=== PATIENT | female | born 1965 | race Caucasian/White ===

== ENCOUNTER → 2020-06-30 14:39 | Outpatient (CLI) | payer OTHER, SELFPAY ==
--- NOTE | 2020-06-30 14:59 | DI.MG.S_ITS ---
Patient Name: INO MCKENZIE date: 1965 Sex: F Attending Physician: Renate Indications: Date: 06/30/2020 14:45 At the request of: CHRISTOS THURSTON Procedure: MM diagnostic mammo BI BILATERAL DIGITAL DIAGNOSTIC MAMMOGRAM 3D/2D: 06/30/2020 CLINICAL: Right breast thickening. Comparison is made to exams dated: 02/26/2019 mammogram and 11/01/2017 mammogram - Medical Imaging @ [facility]. The tissue of both breasts is heterogeneously dense. This may lower the sensitivity of mammography. There is a new 0.8 cm irregular equal density asymmetry in the right breast posterior depth central to the nipple seen on the mediolateral oblique view only. No other significant masses, calcifications, or other findings are seen in either breast. IMPRESSION: INCOMPLETE: NEEDS ADDITIONAL IMAGING EVALUATION The new 0.8 cm irregular equal density asymmetry in the right breast is indeterminate. Further evaluation by sonogram is recommended which is scheduled to immediately follow this examination. There is no abnormality seen in the right breast to correspond with the area of clinical concern and palpable abnormality indicated by triangular marker in the posterior depth in the lower inner quadrant, however, ultrasound is recommended which is scheduled to immediately follow this examination. This exam was interpreted at Station ID: [id number]. NOTE: For mammograms, a report in lay terms will be sent to the patient. Approximately 15% of breast malignancies will not be visualized mammographically. In the management of a palpable breast mass, a negative mammogram must not discourage biopsy of a clinically suspicious lesion. Electronically Signed By: Ivan Carranza M.D. Continued Report - Page 2 of 2 Patient Name: INO MCKENZIE date: 1965 Sex: F Attending Physician: Renate Indications: Date: 06/30/2020 14:45 At the request of: CHRISTOS THURSTON Procedure: MM diagnostic mammo BI aty/:06/30/2020 17:13:59 ACR BI-RADS Category 0: Incomplete 3340F
--- NOTE | 2020-07-31 15:53 | DI.US.S_ITS ---
Patient Name: INO MCKENZIE date: 1965 Sex: F Attending Physician: Renate Indications: Date: 06/30/2020 16:04 At the request of: CHRISTOS THURSTON Procedure: US breast RT limited LIMITED ULTRASOUND OF RIGHT BREAST AND AXILLA: 06/30/2020 CLINICAL: Palpable right breast lump. Comparison is made to exams dated: 06/30/2020 mammogram - [facility], 02/26/2019 mammogram, and 11/01/2017 mammogram - Medical Imaging @ [facility]. Color flow and real-time ultrasound of the right breast 4 o'clock, 6 o'clock, retroareolar, and axilla regions were performed. Rivera scale images of the real-time examination were reviewed. There is a 1.1 cm x 0.9 cm x 0.9 cm irregular mass with an indistinct margin in the right breast at 6 o'clock posterior depth. This irregular mass is hypoechoic with mild posterior acoustic shadowing. This possibly correlates with mammography finding of the mediolateral oblique view asymmetry noted in the posterior right breast along the retroareolar plane. Color flow imaging demonstrates that there is no vascularity present. No sonographic abnormalities were visualized at the patient directed area of palpable concern localizing to the 4 o'clock axis. No significant abnormalities were seen sonographically in the right axilla. IMPRESSION: SUSPICIOUS OF MALIGNANCY The 1.1 cm x 0.9 cm x 0.9 cm irregular mass in the right breast is suspicious of malignancy. An ultrasound guided biopsy is recommended. There is no sonographic abnormality seen in the right breast to correspond with the area of clinical concern and palpable abnormality indicated by triangular marker in the posterior depth in the lower inner quadrant, however, recommend continued clinical follow up for persistent or worsening symptoms or development of any clinically suspicious findings. Findings and biopsy recommendations were discussed in person with the patient by Dr. Limon during today's evaluation. Continued Report - Page 2 of 2 Patient Name: INO MCKENZIE date: 1965 Sex: F Attending Physician: Renate Indications: Date: 06/30/2020 16:04 At the request of: CHRISTOS THURSTON Procedure: US breast RT limited This exam was interpreted at Station ID: [id number]. Electronically Signed By: Ivan Carranza M.D. aty/:06/30/2020 17:19:38 letter sent: Biopsy Required Ultrasound BI-RADS: 4 Suspicious for malignancy
== END ==
PROVIDERS: PCP Physician Assistant; Referring Provider Physician Assistant; Visit Provider Physician Assistant
DX: R92.8 Other abnormal and inconclusive findings on diagnostic imaging of breast (principal); N63.15 Unspecified lump in the right breast, overlapping quadrants
CPT/HCPCS: 76642; 77066; G0279

== ENCOUNTER → 2020-07-09 09:01 | Outpatient (CLI) | payer OTHER, SELFPAY ==
--- NOTE | 2020-07-09 09:02 | DI.RAD.S_ITS ---
PROCEDURE: XR ANKLE LT MIN 3V INDICATIONS: l ankle pain TECHNIQUE: 3 views of the ankle were acquired. COMPARISON: None. FINDINGS: Bones: No fractures or dislocations. Ankle mortise is normally aligned. No suspicious bony lesions. The talar dome demonstrates no henna abnormality. Incidental note is made of an accessory ossicle, an os peroneum. Soft tissues: No tibiotalar joint effusion. Achilles tendon appears normal. IMPRESSION: No acute plain film abnormality is seen. If it would be helpful for clinical management decision making, please consider a dedicated, scheduled ankle MRI for further evaluation (assuming that there is no contraindication). Dictated by: Eron Rowell M.D. on 07/09/2020 at 8:15 Approved by: Eron Rowell M.D. on 07/09/2020 at 8:16
== END ==
PROVIDERS: PCP Physician Assistant; Referring Provider Physician Assistant; Visit Provider Physician Assistant
DX: M25.572 Pain in left ankle and joints of left foot (principal)
CPT/HCPCS: 73610

== ENCOUNTER → 2020-07-14 12:37 | Outpatient (CLI) | payer OTHER, SELFPAY ==
--- NOTE | 2020-07-14 | PATH_ITS ---
[facility] Accession Number: [id number] . 01 Material submitted: . breast - RIGHT BREAST MASS 6:00 RETRO . 01 Diagnosis: A. Right Breast Mass, 6 o'clock, Retroareolar, Biopsy: Fibroadenoma. Background breast parenchyma with focal apocrine metaplasia and focal usual ductal hyperplasia. Calcifications are not identified. Negative for atypia, carcinoma in situ, and malignancy. V 07/17/2020 1732 Local . 01 Electronically signed: . Eleni Oliver MD, Pathologist NPI- [id number] . 01 Gross description: . Received in formalin, labeled RT breast, are six pieces of jackson, fibrous tissue measuring 1.0 x 0.4 x 0.3 cm to 0.5 x 0.5 x 0.4 cm. All six pieces are entirely submitted in cassettes A1 and A2, with three pieces per cassette. The collection date and time are listed as 07/14/20 at 14:05 for a total of approximately 18 hours of fixation after processing. ([id number]) /FRR 07/15/2020 0851 Local . 01 Microscopic: . No polarizable material is identified under polarizable light microscopy. . 01 Pathologist provided ICD-10: D24.9 . 01 CPT . 525645 Performed at: 01 [facility] [address] [place] [address] [address], [place], [place] [id number] MD Fercho Perrin MD Phone: [phone]
--- NOTE | 2020-07-14 13:27 | DI.US.S_ITS ---
Patient Name: INO MCKENZIE date: 1965 Sex: F Attending Physician: Renate Indications: Date: 07/14/2020 13:21 At the request of: CHRISTOS THURSTON Procedure: US bx breast perc w vac device ULTRASOUND GUIDED BIOPSY RIGHT BREAST USING VACUUM DEVICE WITH MARKING DEVICE INSERTED: 07/14/2020 CLINICAL: Right breast mass. PATIENT CONSENT: Risks (minor bleeding, infection, vasovagal reaction and repeat procedure), benefits and alternatives were explained to the patient and written informed consent was obtained. Correlation is made to exams dated: 07/14/2020 mammogram, 06/30/2020 ultrasound, 06/30/2020 mammogram - [facility], 02/26/2019 mammogram, and 11/01/2017 mammogram - Medical Imaging @ [facility]. An ultrasound guided biopsy using real-time ultrasound was performed for the irregular shaped mass located in the right breast at 6 o'clock middle depth. The skin was prepped in the usual manner. Local anesthetic was administered to the access site. A small incision was made in the breast. The abnormality was approached from the lateral aspect. A biopsy needle was placed adjacent to the abnormality under ultrasound guidance. Once the needle was documented to be in the correct location, four specimens were obtained using the Mammotome biopsy system. A clip was inserted into the biopsy cavity. The specimens were sent to the laboratory for pathological analysis. IMPRESSION: ULTRASOUND GUIDED BIOPSY BENIGN Ultrasound guided biopsy of the mass in the right breast at 6 o'clock middle depth was successful. Pathology indicates benign apocrine metaplasia, usual ductal hyperplasia, and fibroadenoma. Pathology results are concordant with imaging findings. Return to annual mammogram screening schedule is recommended. This exam was interpreted at Station ID: [id number]. Juan linares,aty/:07/18/2020 19:28:33 Continued Report - Page 2 of 2 Patient Name: INO MCKENZIE date: 1965 Sex: F Attending Physician: Renate Indications: Date: 07/14/2020 13:21 At the request of: CHRISTOS THURSTON Procedure: US bx breast perc w vac device
--- NOTE | 2020-07-14 16:31 | DI.MG.S_ITS ---
Patient Name: INO MCKENZIE date: 1965 Sex: F Attending Physician: Renate Indications: Date: 07/14/2020 13:00 At the request of: CHRISTOS THURSTON Procedure: MM diagnostic mammo [id number] UNILATERAL RIGHT DIGITAL DIAGNOSTIC MAMMOGRAM POST-NEEDLE BIOPSY: 07/14/2020 CLINICAL: Right breast mass. Comparison is made to exams dated: 06/30/2020 mammogram - [facility], 02/26/2019 mammogram, and 11/01/2017 mammogram - Medical Imaging @ [facility]. The tissue of right breast is heterogeneously dense. This may lower the sensitivity of mammography. There is a marker clip in the appropriate position in the right breast at 6 o'clock middle depth. This marker clip placement is at the biopsy site. IMPRESSION: POST PROCEDURE MAMMOGRAM FOR MARKER PLACEMENT There was a successful marker clip placement in the right breast . This exam was interpreted at Station ID: [id number]. NOTE: For mammograms, a report in lay terms will be sent to the patient. Approximately 15% of breast malignancies will not be visualized mammographically. In the management of a palpable breast mass, a negative mammogram must not discourage biopsy of a clinically suspicious lesion. Electronically Signed By: Juan linares/:07/14/2020 16:31:23 ACR BI-RADS Category Post-procedure mammogram for marker placement
== END ==
PROVIDERS: PCP Physician Assistant; Referring Provider Physician Assistant; Visit Provider Physician Assistant
DX: D24.1 Benign neoplasm of right breast (principal); N60.81 Other benign mammary dysplasias of right breast
CPT/HCPCS: 19083; 77065

== ENCOUNTER → 2021-07-05 07:58 | Outpatient (CLI) | payer OTHER, SELFPAY ==
[2021-07-05 08:37] LABS: COVID19 -Nasal RAPID Negative (Negative)
== END ==
PROVIDERS: PCP Physician Assistant; Referring Provider Nurse Practitioner; Visit Provider Nurse Practitioner
DX: R19.7 Diarrhea, unspecified (principal); Z20.822 Contact with and (suspected) exposure to COVID-19
CPT/HCPCS: 87635

== ENCOUNTER → 2021-08-27 16:35 | Outpatient (CLI) | payer OTHER, SELFPAY ==
--- NOTE | 2021-08-27 | DI.MG.S_ITS ---
BILATERAL DIGITAL SCREENING MAMMOGRAM 3D/2D WITH CAD: 08/27/2021 CLINICAL: Routine screening. Comparison is made to exams dated: 07/14/2020 mammogram, 06/30/2020 mammogram - [facility], and 02/26/2019 mammogram - Medical Imaging @ [facility]. The tissue of both breasts is heterogeneously dense. This may lower the sensitivity of mammography. Current study was also evaluated with a Computer Aided Detection (CAD) system. There is a biopsy clip in the right breast. No significant masses, calcifications, or other findings are seen in either breast. There has been no significant interval change. IMPRESSION: NEGATIVE There is no mammographic evidence of malignancy. A 1 year screening mammogram is recommended. This exam was interpreted at Station ID: [id number]. NOTE: For mammograms, a report in lay terms will be sent to the patient. Approximately 15% of breast malignancies will not be visualized mammographically. In the management of a palpable breast mass, a negative mammogram must not discourage biopsy of a clinically suspicious lesion. Electronically Signed By: Tg miller/jessica:08/27/2021 17:27:57 letter sent: Normal Exam ACR BI-RADS Category 1: Negative 3341F
== END ==
PROVIDERS: PCP Physician Assistant; Referring Provider Physician Assistant; Visit Provider Physician Assistant
DX: Z12.31 Encounter for screening mammogram for malignant neoplasm of breast (principal)
CPT/HCPCS: 77063; 77067

== ENCOUNTER → 2021-10-24 09:12 | Outpatient (CLI) | payer OTHER, SELFPAY ==
[2021-10-24 11:37] LABS: COVID19 -Nasal RAPID Negative (Negative)
== END ==
PROVIDERS: PCP Physician Assistant; Visit Provider Surgery
DX: Z01.812 Encounter for preprocedural laboratory examination (principal); Z20.822 Contact with and (suspected) exposure to COVID-19
CPT/HCPCS: 87635; C9803

== ENCOUNTER 2021-10-25 07:38 | Day surgery (SDC) | payer OTHER, SELFPAY ==
--- NOTE | 2021-10-25 | PATH_ITS ---
[facility] Accession Number: [id number] . 01 Material submitted: . stomach - ANTRUM . 02 Diagnosis: Antrum, Biopsies: Gastric antral mucosa with minimal chronic inflammation. Negative for Helicobacter organisms by immunohistochemistry. Negative for intestinal metaplasia. Negative for dysplasia or malignancy. [facility] 10/31/2021 1530 Local . 02 Electronically signed: . Lonny Arteaga MD, PhD, Pathologist NPI- [id number] . 01 Gross description: . The specimen is received in formalin, labeled antrum and consists of two jackson fragments of soft tissue measuring 0.4 x 0.3 x 0.2 cm in aggregate. The specimen is entirely submitted in cassette A1. (EA:[id number]) /MRV 10/26/2021 1232 Local . 02 Microscopic: . An immunohistochemical stain was performed to evaluate for Helicobacter organisms and is negative. The control stain showed appropriate reactivity. . * This test was developed and its performance characteristics determined by [facility]. It has not been cleared or approved by the U.S. Food and Drug Administration. The FDA has determined that such clearance or approval is not necessary. This test is used for clinical purposes. It should not be regarded as investigational or for research. . 02 Pathologist provided ICD-10: K29.70 . 02 CPT . 213691, G03212 Performed at: 01 [facility] [address] [place] [address], [place], [place] [id number] MD Fercho Perrin MD Phone: [phone] Performed at: 02 [facility] [id number] [place], [place] [id number] MD Jacquelyn Avelar MD Phone: [phone]
[2021-10-25 07:52] VITALS: BP 115/73; PULSE 71; RESP 16; TEMP 37.1; O2SAT 96; BMI 25.8
[2021-10-25] MEDS: LACTATED RINGERS 1,000 ML 42 ML IV (08:03)
--- NOTE | 2021-10-25 09:14 | PM.HP.1 ---
History of Present Illness History of Present Illness Date Patient Seen: 10/25/21 Time Patient Seen: 09:14 Chief complaint: SDC Narrative: 56-year-old woman with GERD type symptoms including eructation and regurgitation Patient History Medical History (Updated 10/25/21 @ 09:16 by Dilip Girard MD) Chronic urticaria GERD (gastroesophageal reflux disease) Surgical History H/O parathyroidectomy H/O: hysterectomy Family & Social History Family History Mother Hypertension Myeloma Sister Hypertension Father Bladder cancer Grandmother Cancer Colon cancer Social History: household members spouse lives independently Yes Tobacco & Substance use: Smoking Status Never smoker alcohol intake current alcohol intake frequency a few times a month Substance Use Type does not use Meds Home Medications and Allergies Home Medications Medication Instructions Recorded Confirmed Type conjugated estrogens 0.3 mg tablet 0.3 mg PO DAILY 07/09/20 10/25/21 History (Premarin) sertraline 50 mg tablet 75 mg PO DAILY tab 07/09/20 10/25/21 History Saccharomyces boulardii [Daily 1 tab PO DAILY 09/11/21 10/25/21 History Probiotic (S. boulardii)] cholecalciferol (vitamin D3) 125 125 mcg PO DAILY 09/11/21 10/25/21 History mcg (5,000 unit) capsule (Dialyvite Vitamin D) mecobalamin (vitamin B12) [B12 1 tab PO DAILY 09/11/21 10/25/21 History Active] Allergies Allergy/AdvReac Type Severity Reaction Status Date / Time Sulfa (Sulfonamide Allergy Verified 09/11/21 13:59 Antibiotics) Exam Vital Signs (past 8 hours): - 10/25/21 07:52 Temperature 98.7 F Pulse Rate 71 Respiratory Rate 16 Blood Pressure 115/73 Pulse Oximetry 96 Oxygen Delivery Method Room Air Const General: healthy appearing Eyes General: appearance normal, both eyes and all related structures Resp Effort & Inspection: normal respiratory effort Assessment & Plan Assessment and plan (1) GERD (gastroesophageal reflux disease): Status: Acute Plan EGD today COVID-19 COVID-19 status: Negative Result date/Date tested (Pos, Neg/Pending): 10/24/21 Time Spent With Patient Critical Care time: I spent a total of [] minutes of critical care time on this patient's care today; this time is exclusive of procedural time.
[2021-10-25] MEDS: LIDOCAINE 4% SOLN 50 ML 20 ML TOP (09:23)
[2021-10-25] MEDS: MIDAZOLAM 5 MG/5 ML VIAL IV (09:26)
[2021-10-25] MEDS: fentaNYL 250 MCG/5 ML INJ IV (09:27)
--- NOTE | 2021-10-25 09:33 | PM.OP.EGD ---
Operative Date/Time/Diagnoses Date of procedure: 10/25/21 Time of procedure: 09:33 Pre-op diagnosis: GERD Post-op diagnosis: same Procedure & Clinicians Study performed: Esophagogastroduodenoscopy Same procedure as scheduled: Yes Indications: GERD Surgeon: Dilip Girard Procedure Notes SCOAP/Timeout: Yes Procedure in detail: A timeout was performed. A bite blocked was placed. The patient was positioned in the left lateral decubitus position. The endoscope was inserted through the bite block and passed through the esophagus and stomach and into the duodenum. The duodenal mucosa appeared normal. The scope was withdrawn into the duodenal bulb and no abnormalities were noted. The scope was withdrawn into the stomach. No ulcerations or erythema were noted. Random biopsies were taken from the antrum to rule out H pylori. The rest of the stomach was normal. The scope was retroflexed and no abnormality was noted. The scope was withdrawn into the esophagus and the Z-line was inspected. No abnormality was noted. The remainder of the esophagus was normal. The scope was withdrawn. The patient was awakened and brought to recovery. Sedation minutes: 7 Post-procedure Recommendations: Will call with biopsy results
[2021-10-25 09:35] VITALS: BP 106/67; PULSE 66; RESP 10; TEMP 36.8; O2SAT 94
[2021-10-25 09:40] VITALS: BP 107/65; PULSE 67; RESP 22; O2SAT 94
[2021-10-25 09:45] VITALS: BP 105/54; PULSE 64; RESP 9; O2SAT 95
[2021-10-25 09:50] VITALS: BP 101/65; PULSE 64; RESP 10; TEMP 36.2; O2SAT 96
[2021-10-25 10:00] VITALS: BP 102/70; PULSE 67; RESP 12; TEMP 36.5; O2SAT 95
== END 2021-10-25 10:05 | disposition home or self-care (01) ==
PROVIDERS: PCP Physician Assistant; Referring Provider Surgery; Visit Provider Surgery
PROC: 0DJ08ZZ Inspection of Upper Intestinal Tract, Via Natural or Artificial Opening Endoscopic (ICD-10-PCS; CPT 43235; principal; 2021-10-25 08:45)
DX: K21.9 Gastro-esophageal reflux disease without esophagitis (principal); K29.50 Unspecified chronic gastritis without bleeding
CPT/HCPCS: 43239; 99152; J2250; J3010

== ENCOUNTER → 2022-09-13 14:51 | Outpatient (CLI) | payer OTHER, SELFPAY ==
--- NOTE | 2022-09-13 | DI.MG.S_ITS ---
BILATERAL DIGITAL SCREENING MAMMOGRAM 3D/2D WITH CAD: 09/13/2022 CLINICAL: Routine screening. Comparison is made to exams dated: 08/27/2021 mammogram, 07/14/2020 mammogram, 06/30/2020 mammogram - [facility], and 02/26/2019 mammogram - Medical Imaging @ [facility]. Both breasts are heterogeneously dense, which may obscure small masses (category c / 51-75% glandular tissue). Current study was also evaluated with a Computer Aided Detection (CAD) system. There is a biopsy clip in the right breast. No significant masses, calcifications, or other findings are seen in either breast. There has been no significant interval change. IMPRESSION: NEGATIVE There is no mammographic evidence of malignancy. A 1 year screening mammogram is recommended. Based on the Tyrer Cuzick model (a risk assessment model) the patient's lifetime risk is 12.3% and her 10 year risk is 4.6%. According to the ACR, ACS, and NCCN guidelines, an annual breast MRI exam along with mammogram is recommended if the patient's lifetime risk is 20% or greater. This exam was interpreted at Station ID: [id number]. NOTE: For mammograms, a report in lay terms will be sent to the patient. Approximately 15% of breast malignancies will not be visualized mammographically. In the management of a palpable breast mass, a negative mammogram must not discourage biopsy of a clinically suspicious lesion. Electronically Signed By: Viral quesada/jessica:09/13/2022 17:43:06 letter sent: Normal Exam ACR BI-RADS Category 1: Negative 3341F
== END ==
PROVIDERS: PCP Family Medicine; Referring Provider Family Medicine; Visit Provider Family Medicine
DX: Z12.31 Encounter for screening mammogram for malignant neoplasm of breast (principal)
CPT/HCPCS: 77063; 77067

== ENCOUNTER → 2022-11-18 07:05 | Outpatient (CLI) | payer OTHER, SELFPAY ==
--- NOTE | 2022-11-18 | DI.RAD.S_ITS ---
PROCEDURE: XR DEXA AXIAL SKELETON INDICATIONS: OSTEOPOROSIS SCREENING COMPARISON: None. FINDINGS: This blank DEXA report has been sent in error by the PACS system. The correct and complete report will be forthcoming in 1-2 days. Thank you for your patience and understanding. Dictated by: Harjeet Limon M.D. on 11/18/2022 at 14:09 Approved by: Harjeet Limon M.D. on 11/18/2022 at 14:09
[2022-11-18 07:54] LABS: Add Manual Diff / Slide Review NO; Basophils Absolute Auto 100 /uL (0-100); Basophils Percent Auto 1.4 % (0-2); Eosinophils Absolute Auto 300 /uL (0-450); Eosinophils Percent Auto 6.5 % (2-4); Hematocrit 39.7 % (36-46); Hemoglobin 12.6 g/dL (12.0-16.0); Lymphocytes Absolute Auto 1200 /uL (1100-4500); Mean Corpuscular HGB Conc 31.8 % (30-36); Mean Corpuscular Hemoglobin 27.6 PG (26-34); Mean Corpuscular Volume 86.8 fL (80-100); Monocytes Absolute Auto 400 /uL (0-900); Monocytes Percent Auto 8.7 % (3-14); Neutrophils Absolute Auto 2900 /uL (1500-7000); Neutrophils Percent Auto 59.4 % (50-75); Platelet Count 222 X10^3/uL (150-400); Red Blood Cell Count 4.57 X10^6/uL (4.0-5.2); Red Cell Distribution Width 13.7 % (11.6-14.8); White Blood Cell Count 4.8 X10^3/uL (4.5-11.0)
[2022-11-18 08:06] LABS: Alanine Aminotransferase 17 IU/L (<35); Alkaline Phosphatase 67 U/L (38-126); Aspartate Aminotransferase 19 IU/L (14-36); BUN Creatinine Ratio 25.8 (6-22); Bilirubin Total 0.4 mg/dL (0.2-1.3); Blood Urea Nitrogen 17 mg/dL (7-17); Carbon Dioxide 27 mmol/L (22-32); Chloride 104 mmol/L (98-107); Cholesterol 207 mg/dL (140-199); Estimated Glomerular Filt Rate > 60 mL/min (>60); Glucose 88 mg/dL (70-100); HDL Cholesterol 81 mg/dL (40-60); HEMOLYSIS < 15 (0-50); LDL Cholesterol Calculated 108 mg/dL (<100); Magnesium 1.9 mg/dL (1.6-2.3); Potassium 4.1 mmol/L (3.4-5.1); Sodium 139 mmol/L (137-145); Total Protein 6.8 g/dL (6.3-8.2); Triglycerides 92 mg/dL (35-150)
[2022-11-18 08:22] LABS: Vitamin D 25 Hydroxy (D3) 35.3 ng/mL (30.0-100.0)
[2022-11-18 09:09] LABS: Folate 9.3 ng/mL (2.76-20.0); Vitamin B12 579 pg/mL (239-931)
[2022-11-22 15:42] LABS: Albumin 3.8 g/dL (3.5-5.0); Albumin Globulin Ratio 1.3 (1.0-2.8)
== END ==
PROVIDERS: PCP Family Medicine; Referring Provider Family Medicine; Visit Provider Family Medicine
DX: Z13.820 Encounter for screening for osteoporosis (principal); M85.852 Other specified disorders of bone density and structure, left thigh; Z78.0 Asymptomatic menopausal state; Z12.11 Encounter for screening for malignant neoplasm of colon; E78.5 Hyperlipidemia, unspecified; R00.2 Palpitations; E56.9 Vitamin deficiency, unspecified; F32.9 Major depressive disorder, single episode, unspecified; Z92.23 Personal history of estrogen therapy; Z90.710 Acquired absence of both cervix and uterus
CPT/HCPCS: 36415; 77080; 80053; 80061; 82306; 82607; 82746; 83735; 84443; 85025

== ENCOUNTER 2023-04-24 08:55 | Day surgery (SDC) | payer OTHER, SELFPAY ==
[2023-04-24 09:20] VITALS: BMI 27.3
[2023-04-24 09:27] VITALS: BP 114/80; PULSE 76; RESP 16; TEMP 36.7; O2SAT 98
[2023-04-24] MEDS: LACTATED RINGERS 1,000 ML 42 ML IV (09:30)
--- NOTE | 2023-04-24 10:25 | PM.HP.1 ---
History of Present Illness History of Present Illness Date Patient Seen: 04/24/23 Time Patient Seen: 10:25 Chief complaint: Colonoscopy Narrative: Nahomy is 57-year-old woman who has had polyps removed on prior colonoscopies. Her last colonoscopy was in 2017 and was normal. The recommendation given was for 5 years. [facility] Medical History Chronic urticaria GERD (gastroesophageal reflux disease) Surgical History H/O parathyroidectomy H/O: hysterectomy Family History Mother Hypertension Myeloma Sister Hypertension Father Bladder cancer Grandmother Cancer Colon cancer Social History marital status: household members: spouse lives independently: Yes occupational status: employed Smoking Status: Never smoker alcohol intake: current Meds Home Medications and Allergies Home Medications Medication Instructions Recorded Confirmed Type sertraline 50 mg tablet 75 mg PO DAILY 07/09/20 04/24/23 History Multi For Her 04/24/23 History famotidine 20 mg tablet (Pepcid) 20 mg PO PRN PRN Heartburn 04/24/23 04/24/23 History Allergies Allergy/AdvReac Type Severity Reaction Status Date / Time Sulfa (Sulfonamide Allergy Verified 04/24/23 09:14 Antibiotics) codeine AdvReac Nausea Verified 04/24/23 09:14 Exam Vital Signs (past 8 hours): - 04/24/23 09:27 Temperature 98.0 F Pulse Rate 76 Respiratory Rate 16 Blood Pressure 114/80 Pulse Oximetry 98 Oxygen Delivery Method Room Air Oxygen Delivery Method Room Air Const General: healthy appearing Assessment & Plan Assessment and plan (1) History of colon polyps: Status: Acute Plan We reviewed the risks and benefits of colonoscopy for colon cancer screening and history of polyps and she would like to proceed.
--- NOTE | 2023-04-24 11:28 | PM.OP.COLON ---
Operative Date/Time/Diagnoses Date of procedure: 04/24/23 Time of procedure: 11:28 Pre-op diagnosis: Colon cancer screening Post-op diagnosis: same Procedure & Clinicians Study performed: Colonoscopy Same procedure as scheduled: Yes Surgeon: Dilip Girard Procedure Notes Procedure in detail: Surgeon: Dilip Girard MD Anesthesia: Jemal Ocampo CRNA Procedure: The patient was brought to the endoscopy suite, placed in left lateral decubitus position. The patient was connected to monitoring devices. A time-out was performed. Sedation was administered. Once the patient was adequately sedated, a digital rectal exam was performed and was normal. The scope was then inserted and advanced to the cecum where the appendiceal orifice was identified and photographed. The scope was then slowly withdrawn over greater than 6 minutes. The mucosa was thoroughly inspected. No polyps were seen. The scope was retroflexed in the rectum. No abnormalities were seen. The scope was straightened and removed. The patient was awakened and brought to recovery. Scope withdrawal time: 8 minutes Sedation time: 16 minutes EBL: 0 Findings: Normal colon Post-procedure Recommendations: Colonoscopy in 10 years Disposition: PACU
[2023-04-24 11:30] VITALS: BP 101/81; PULSE 72; RESP 16; TEMP 36.1; O2SAT 91
[2023-04-24 11:35] VITALS: BP 89/55; PULSE 75; RESP 12; O2SAT 98
[2023-04-24 11:40] VITALS: BP 97/61; PULSE 70; RESP 18; TEMP 36.2; O2SAT 98
[2023-04-24 11:46] VITALS: BP 100/64; PULSE 69; RESP 12; O2SAT 98
== END 2023-04-24 11:59 | disposition home or self-care (01) ==
PROVIDERS: PCP Nurse Practitioner Family; Referring Provider Surgery; Visit Provider Surgery
PROC: 0DJD8ZZ Inspection of Lower Intestinal Tract, Via Natural or Artificial Opening Endoscopic (ICD-10-PCS; CPT 45378; principal; 2023-04-24 10:00)
DX: Z12.11 Encounter for screening for malignant neoplasm of colon (principal)
CPT/HCPCS: 45378; J2704

== ENCOUNTER → 2023-09-29 16:50 | Outpatient (CLI) | payer OTHER, SELFPAY ==
--- NOTE | 2023-09-29 16:51 | DI.MG.S_ITS ---
BILATERAL DIGITAL SCREENING MAMMOGRAM 3D/2D WITH CAD: 09/29/2023 CLINICAL: Routine screening. Comparison is made to exams dated: 09/13/2022 mammogram, 08/27/2021 mammogram, and 06/30/2020 mammogram - [facility]. Both breasts are heterogeneously dense, which may obscure small masses (category c / 51-75% glandular tissue). Current study was also evaluated with a Computer Aided Detection (CAD) system. There is a biopsy clip in the right breast. No significant masses, calcifications, or other findings are seen in either breast. There has been no significant interval change. IMPRESSION: NEGATIVE There is no mammographic evidence of malignancy. A 1 year screening mammogram is recommended. Based on the Tyrer Cuzick model (a risk assessment model) the patient's lifetime risk is 12.1% and her 10 year risk is 4.7%. According to the ACR, ACS, and NCCN guidelines, an annual breast MRI exam along with mammogram is recommended if the patient's lifetime risk is 20% or greater. This exam was interpreted at Station ID: [id number]. NOTE: For mammograms, a report in lay terms will be sent to the patient. Approximately 15% of breast malignancies will not be visualized mammographically. In the management of a palpable breast mass, a negative mammogram must not discourage biopsy of a clinically suspicious lesion. Electronically Signed By: Reena bradley/jessica:09/30/2023 08:49:13 letter sent: Normal Exam ACR BI-RADS Category 1: Negative 3341F
== END ==
PROVIDERS: PCP Nurse Practitioner Family; Referring Provider Nurse Practitioner Family; Visit Provider Nurse Practitioner Family
DX: Z12.31 Encounter for screening mammogram for malignant neoplasm of breast (principal)
CPT/HCPCS: 77063; 77067

== ENCOUNTER → 2024-05-05 07:42 | Outpatient (CLI) | payer OTHER, SELFPAY ==
[2024-05-05 08:33] LABS: Alanine Aminotransferase 19 IU/L (<35); Albumin 3.8 g/dL (3.5-5.0); Albumin Globulin Ratio 1.5 (1.0-2.8); Alkaline Phosphatase 86 U/L (38-126); Aspartate Aminotransferase 25 IU/L (14-36); Bilirubin Total 0.4 mg/dL (0.2-1.3); Blood Urea Nitrogen 12 mg/dL (7-17); Carbon Dioxide 27 mmol/L (22-32); Chloride 110 mmol/L (98-107); Estimated Glomerular Filt Rate > 60 mL/min (>60); Globulin 2.6 g/dL (1.7-4.1); Glucose 89 mg/dL (80-110); HEMOLYSIS < 15 (0-50); Potassium 4.1 mmol/L (3.4-5.1); Sodium 141 mmol/L (137-145); Total Protein 6.4 g/dL (6.3-8.2)
[2024-05-05 08:35] LABS: Add Manual Diff / Slide Review NO; Basophils Absolute Auto 100 /uL (0-100); Basophils Percent Auto 1.1 % (0-2); Eosinophils Absolute Auto 200 /uL (0-450); Eosinophils Percent Auto 4.2 % (2-4); Hematocrit 38.4 % (36-46); Hemoglobin 12.2 g/dL (12.0-16.0); Lymphocytes Absolute Auto 1200 /uL (1100-4500); Lymphocytes Percent Auto 24.7 % (25-40); Mean Corpuscular HGB Conc 31.8 % (30-36); Mean Corpuscular Hemoglobin 26.9 PG (26-34); Mean Corpuscular Volume 84.5 fL (80-100); Monocytes Absolute Auto 400 /uL (0-900); Monocytes Percent Auto 8.3 % (3-14); Neutrophils Absolute Auto 2900 /uL (1500-7000); Neutrophils Percent Auto 61.7 % (50-75); Platelet Count 211 X10^3/uL (150-400); Red Blood Cell Count 4.55 X10^6/uL (4.0-5.2); Red Cell Distribution Width 14.3 % (11.6-14.8); White Blood Cell Count 4.7 X10^3/uL (4.5-11.0)
[2024-05-05 08:50] LABS: Free T3, Triiodothyronine Free 3.64 pg/mL (2.77-5.27); Free T4, Direct Thyroxine 0.87 ng/dL (0.78-2.19)
[2024-05-05 09:03] LABS: Thyroid Stimulating Hormone 1.32 uIU/mL (0.47-4.68)
[2024-05-06 07:36] LABS: Thyroid Peroxidase Antibodies <9 IU/mL (0-34)
[2024-05-06 14:57] LABS: Hep C Virus Ab w/Reflex Quant NEGATIVE s/c (NEGATIVE)
[2024-05-06 20:07] LABS: Anti Thyroglobulin Antibody <1.0 IU/mL (0.0-0.9)
== END ==
LOC: LAB 07:43
PROVIDERS: PCP Nurse Practitioner Family; Referring Provider Nurse Practitioner Family; Visit Provider Nurse Practitioner Family
DX: Z11.59 Encounter for screening for other viral diseases (principal); E78.5 Hyperlipidemia, unspecified; R00.2 Palpitations
CPT/HCPCS: 36415; 80053; 80061; 84439; 84443; 84481; 85025; 86376; 86800; 86803

== ENCOUNTER → 2024-07-25 13:02 | Outpatient (CLI) | payer OTHER, SELFPAY ==
[2024-07-25 13:49] LABS: Influenza A - CEPHEID Flu A NEGATIVE (NEGATIVE); Influenza B - CEPHEID Flu B NEGATIVE (NEGATIVE); Respiratory Syncytial Virus Negative (Negative)
[2024-07-25 14:04] LABS: COVID-19 CEPHEID 4-PLEX PCR Negative (Negative)
== END ==
PROVIDERS: PCP Nurse Practitioner Family; Visit Provider Physician Assistant Surgical
DX: R05.1 Acute cough (principal)
CPT/HCPCS: 0241U

== ENCOUNTER → 2024-10-14 16:52 | Outpatient (CLI) | payer OTHER, SELFPAY | PROVIDERS: PCP Nurse Practitioner Family; Visit Provider Physician Assistant Surgical | DX: R31.9 Hematuria, unspecified (principal) | CPT/HCPCS: 87086 ==

== ENCOUNTER → 2025-08-17 09:30 | Outpatient (CLI) | payer OTHER, SELFPAY ==
[2025-08-17 09:55] LABS: Hematocrit 39.6 % (36-46); Hemoglobin 12.8 g/dL (12.0-16.0); Mean Corpuscular HGB Conc 32.3 % (30-36); Mean Corpuscular Hemoglobin 27.1 PG (26-34); Mean Corpuscular Volume 83.7 fL (80-100); Platelet Count 202 X10^3/uL (150-400)
[2025-08-17 10:04] LABS: Hemoglobin A1C% w Est Avg Glu 5.6 % (4.0-6.0)
[2025-08-17 10:28] LABS: Blood Urea Nitrogen 16 mg/dL (7-17); Calcium 9.5 mg/dL (8.4-10.2); Carbon Dioxide 27 mmol/L (22-32); Chloride 104 mmol/L (98-107); Cholesterol 203 mg/dL (140-199); Estimated Glomerular Filt Rate > 60 mL/min (>60); Glucose 88 mg/dL (70-99); HDL Cholesterol 74 mg/dL (40-60); HEMOLYSIS < 15 (0-50); Potassium 4.5 mmol/L (3.4-5.1); Sodium 139 mmol/L (137-145); Triglycerides 81 mg/dL (35-150)
== END ==
PROVIDERS: PCP Nurse Practitioner Family; Referring Provider Nurse Practitioner Family; Visit Provider Nurse Practitioner Family
DX: Z13.220 Encounter for screening for lipoid disorders (principal); Z13.1 Encounter for screening for diabetes mellitus; Z13.0 Encounter for screening for diseases of the blood and blood-forming organs and certain disorders involving the immune mechanism
CPT/HCPCS: 36415; 80048; 80061; 83036; 85027

== ENCOUNTER → 2025-10-01 07:41 | Outpatient (CLI) | payer OTHER, SELFPAY ==
--- NOTE | 2025-10-01 07:41 | DI.MG.S_ITS ---
MM screening mammo BI: 10/01/2025. BI-RADS: 2 CLINICAL: 59-year old female for bilateral screening mammogram. Tyrer-Cuzick lifetime risk of 6.4%. No personal or first-degree family history of breast cancer. The patient had prior bilateral breast biopsies. PRIOR EXAMS 09/14/2024, 09/29/2023, 09/13/2022, 08/27/2021. MAMMOGRAPHY TECHNIQUE: 2D and 3D (tomosynthesis) digital mammographic views obtained, with additional images as needed for full coverage. Current study was also evaluated with a Computer Aided Detection (CAD) system. DENSITY B. There are scattered areas of fibroglandular density. MAMMOGRAPHY FINDINGS Right: Biopsy marker present on the right. There are no suspicious masses, calcifications, or other findings in the breast. Left: No suspicious mass, asymmetry, microcalcification, or other abnormality seen. IMPRESSION: Right * No evidence of malignancy with benign findings. Left * No evidence of malignancy. RECOMMENDATIONS Bilateral * Annual screening mammography. OVERALL ASSESSMENT CATEGORY BI-RADS-2: Benign. [employer] recommends annual screening mammography beginning at age 40 for women with average risk of breast cancer. ELECTRONICALLY SIGNED: Morenita Montanez M.D. on 10/03/2025 at 03:14:56 PM PT Interpreting Station ID: [id number]
== END ==
PROVIDERS: PCP Nurse Practitioner Family; Referring Provider Nurse Practitioner Family; Visit Provider Nurse Practitioner Family
DX: Z12.31 Encounter for screening mammogram for malignant neoplasm of breast (principal)
CPT/HCPCS: 77063; 77067